=== PATIENT | female | born 1985 | race Caucasian/White ===

== ENCOUNTER → 2016-12-22 | Outpatient (CLI) | payer MEDICAID | LOC: RAD 16:35 | PROVIDERS: ATTEND Family Medicine | DX: Z34.92 Encounter for supervision of normal pregnancy, unspecified, second trimester (principal) | CPT/HCPCS: 76805 ==

== ENCOUNTER → 2017-10-17 | Outpatient (CLI) | payer OTHER ==
--- NOTE | 2017-10-17 11:18 | RADIOLOGY REPORT (SQ) ---
EXAM DESCRIPTION: MRI RT LOWER JOINT WITHOUT COMPLETED DATE/TIME: 10/17/2017 11:08 am REASON FOR STUDY: RIGHT KNEE PAIN M25.561 PAIN IN RIGHT KNEE COMPARISON: None. TECHNIQUE: Rightknee images acquired and stored on PACS. Multiplanar images include fat sensitive s equences as T1, water sensitive sequences as FST2 or STIR, cartilage sensitive sequences as FSPD, and gradient echo sequences. LIMITATIONS: None. FINDINGS: JOINT AND BURSAE: No effusion. BONE CORTEX AND MARROW: No alteration of signal to suggest marrow replacement. No worrisome bone lesi ons. No occult fracture. ACL: Intact. No degeneration or ganglion cyst. PCL: Intact. MCL: Intact. No periligamentous edema or fluid. LCL: Intact. No periligamentous edema or fluid. MEDIAL MENISCUS: No tears. No abnormal signal. LATERAL MENISCUS: No tears. No abnormal signal. MEDIAL COMPARTMENT: Cartilage preserved. No bone bruises or reactive marrow edema. No osteophytes. LATERAL COMPARTMENT: Cartilage preserved. No bone bruises or reactive marrow edema. No osteophytes. PATELLA: No chondromalacia. No subchondral cysts. Medial and lateral retinacula intact. EXTENSOR MECHANISM: Quadriceps and patellar tendons relatively intact. Mild edema in the suprapatell ar fat may represent impingement. SOFT TISSUES: Adjacent muscles and subcutaneous tissues normal. Normal flow void in popliteal artery and vein. OTHER: No other significant finding. IMPRESSION: 1. Potential mild suprapatellar fat pad impingement. 2. Otherwise, no internal derangem ent of the right knee appreciated. Cruciate and collateral ligaments are intact and there is no evid ence of meniscal tear or chondral lesion. TECHNICAL DOCUMENTATION: JOB ID: [id number] [employer]- All Rights Reserved
== END ==
LOC: RAD 10:14
PROVIDERS: ATTEND Physician Assistant
DX: M25.561 Pain in right knee (principal)

== ENCOUNTER 2019-09-21 19:31 | Emergency (ER) | payer MEDICAID, OTHER ==
--- NOTE | 2019-09-21 20:26 | EKG REPORT ---
SEVERITY:- BORDERLINE ECG - SINUS RHYTHM BORDERLINE T ABNORMALITIES, DIFFUSE LEADS : Confirmed by: Bogdan Morris MD 21-Sep-2019 20:25:17
--- NOTE | 2019-09-21 20:30 | ER Document Report ---
ED Medical Screen (RME) - General Chief Complaint: Skin Sore(s) Stated Complaint: LUMP ON STERNUM/CHEST PAIN/NAUSEA Time Seen by Provider: 09/21/19 20:23 Primary Care Provider: HOMERO HICKEY PA-C [Primary Care Provider] - Follow up as needed Notes: Patient is a 34-year-old female presents to the emergency department for pressure in the center of her chest. Patient voices she feels as though there is a "knot on my sternum." Patient's denying any trauma or falls. Patient also voices intermittent shortness of breath and nausea. Patient voices she was taking amphetamines for weight loss. States she stopped taking them approximately 5 days ago. GENERAL: Alert, interacts well. No acute distress. LUNGS: Clear to auscultation bilaterally, no wheezes, rales, or rhonchi. No respiratory distress. HEART: Regular rate and rhythm. No murmur I have greeted and performed a rapid initial assessment of this patient. A comprehensive ED assessment and evaluation of the patient, analysis of test results and completion of the medical decision making process will be conducted by additional ED providers. I have specifically instructed the patient or family members with the patient to immediately return to any nursing staff should anything change in the patient's condition or with their chief complaint. This medical record was dictated with voice recognizing software. There may be grammatical, syntax errors that are unintended. TRAVEL OUTSIDE OF THE [place] IN LAST 30 DAYS: No - Related Data Allergies/Adverse Reactions: No Known Allergies Allergy (Verified 09/21/19 20:20) Past Medical History - Social History Frequency of alcohol use: None Drug Abuse: None Endocrine Medical History: Denies: Hx Diabetes Mellitus Type 1, Hx Diabetes Mellitus Type 2 Skin Medical History: Reports Hx Eczema - Immunizations Hx Diphtheria, Pertussis, Tetanus Vaccination: No - unknown Doctor's Discharge - Discharge Referrals: HOMERO HICKEY PA-C [Primary Care Provider] - Follow up as needed
[2019-09-21 20:57] LABS: ABSOLUTE BASOPHILS # (AUTO) 0.1 10^3/uL (0.0-0.2); ABSOLUTE EOSINOPHILS # (AUTO) 0.2 10^3/uL (0.0-0.6); ABSOLUTE LYMPHOCYTES (AUTO) 3.3 10^3/uL (0.5-4.7); ABSOLUTE MONOCYTES (AUTO) 0.5 10^3/uL (0.1-1.4); ABSOLUTE NEUT (AUTO) 7.7 10^3/uL (1.7-8.2); BASOPHILS % (AUTO) 0.6 % (0-2); EOSINOPHILS % (AUTO) 1.4 % (0-6); HEMATOCRIT 42.4 % (36.0-47.0); LYMPHOCYTES % (AUTO) 28.4 % (13-45); MEAN CORPUSCULAR HEMOGLOBIN 28.7 pg (27.0-33.4); MEAN CORPUSCULAR VOLUME 87 fl (80-97); MONOCYTES % (AUTO) 4.4 % (3-13); PLATELET COUNT 289 10^3/uL (150-450); RED BLOOD COUNT 4.88 10^6/uL (3.72-5.28); RED CELL DISTRIBUTION WIDTH 13.2 % (11.5-14.0); SEGMENTED NEUTROPHILS % (AUTO) 65.2 % (42-78); TOTAL CELLS COUNTED % (AUTO) 100 %; WHITE BLOOD COUNT 11.8 10^3/uL (4.0-10.5)
[2019-09-21 21:15] LABS: ALBUMIN 4.9 g/dL (3.5-5.0); ALKALINE PHOSPHATASE 61 U/L (38-126); ANION GAP 14 (5-19); ASPARTATE AMINO TRANSFERASE 26 U/L (14-36); BILIRUBIN,DIRECT 0.1 mg/dL (0.0-0.4); BILIRUBIN,TOTAL 0.5 mg/dL (0.2-1.3); BLOOD UREA NITROGEN 14 mg/dL (7-20); CALCIUM 10.5 mg/dL (8.4-10.2); CARBON DIOXIDE 25 mmol/L (22-30); CHLORIDE 103 mmol/L (98-107); GLUCOSE 99 mg/dL (75-110); POTASSIUM 3.9 mmol/L (3.6-5.0); TOTAL PROTEIN 8.5 g/dL (6.3-8.2)
--- NOTE | 2019-09-21 21:17 | RADIOLOGY REPORT (SQ) ---
XR CHEST 2 VIEWS EXAM DATE: 09/21/2019 8:27 PM ASSURANCE ASSISTANT HISTORY: Pain. COMPARISON: None. FINDINGS: The heart size is within normal limits. No consolidation, pleural effusion, or pneumothorax is seen. No acute bony findings. IMPRESSION: No acute cardiopulmonary disease.
[2019-09-21 22:17] VITALS: BP 139/72
--- NOTE | 2019-09-21 23:03 | ER Document Report ---
ED General - General Chief Complaint: Skin Sore(s) Stated Complaint: LUMP ON STERNUM/CHEST PAIN/NAUSEA Time Seen by Provider: 09/21/19 20:23 Primary Care Provider: HOMERO HICKEY PA-C [Primary Care Provider] - Follow up as needed Notes: Patient complains of 24 hours of midsternal chest pain associated with coughing and she states it feels like a lump on her sternum. States that today she developed epigastric pain and nausea as well that worsens with pushing on her chest. It is associated with a productive cough, she does not have any change with deep breathing and denies any shortness of breath. She does admit nasal congestion and some rhinorrhea, denies any fevers or chills, denies any nausea, vomiting or diarrhea. TRAVEL OUTSIDE OF THE [place] IN LAST 30 DAYS: No - Related Data Allergies/Adverse Reactions: No Known Allergies Allergy (Verified 09/21/19 20:20) Past Medical History - General Information source: Patient - Social History Smoking Status: Never Smoker Frequency of alcohol use: None Drug Abuse: None Family History: Reviewed & Not Pertinent Patient has suicidal ideation: No Patient has homicidal ideation: No Endocrine Medical History: Denies: Hx Diabetes Mellitus Type 1, Hx Diabetes Mellitus Type 2 Skin Medical History: Reports Hx Eczema - Immunizations Hx Diphtheria, Pertussis, Tetanus Vaccination: No - unknown Review of Systems - Review of Systems Constitutional: No symptoms reported. denies: Fever EENT: See HPI Cardiovascular: See HPI Respiratory: See HPI Gastrointestinal: No symptoms reported -: Yes All other systems reviewed and negative Physical Exam - Vital signs Vitals: Temp Pulse Resp BP Pulse Ox 98.1 F 72 18 139/72 H 98 09/21/19 19:55 09/21/19 19:55 09/21/19 19:55 09/21/19 19:55 09/21/19 19:55 Interpretation: Hypertensive - Notes Notes: GENERAL: Alert, interacts well. No acute distress. HEAD: Normocephalic, atraumatic EYES: Pupils equal, round and reactive to light, extraocular movements intact. ENT: Oral mucosa moist, tongue midline. Clear rhinorrhea, slight postnasal drip, no sinus tenderness to percussion, tympanic membranes intact. NECK: Full range of motion, supple, trachea midline. LUNGS: Clear to auscultation bilaterally, no wheezes, rales or rhonchi, no respiratory distress. Sternum is tender to palpation the inferior third of the sternum, no specific tenderness over the xiphoid process or the sternomanubrial joint, no masses are noted, no skin lesions are noted. HEART: Regular rate and rhythm, no murmurs, gallops, rubs. ABDOMEN: Soft, nontender, nondistended, bowel sounds present in all 4 quadrants. EXTREMITIES: Moves all 4 extremities spontaneously, no edema, radial and dorsalis pedis pulses 2/4 bilaterally. No cyanosis. NEUROLOGICAL: Alert and oriented x3, normal speech, biceps and patellar DTRs 2+ bilaterally. PSYCH: Normal mood, normal affect. SKIN: Warm, Dry, normal turgor, no rashes or lesions noted. Course - Re-evaluation Re-evalutation: 09/21/19 23:00 CBC shows slight leukocytosis 11.8, otherwise unremarkable, CMP unremarkable, troponin negative, chest x-ray is unremarkable, EKG is nonischemic. This pain likely varus presents a costochondritis related to a viral upper respiratory tract infection with cough. Counseled patient on using anti-inflammatories, nasal steroids, saline rinses and [id number] decongestants. Patient agreeable with plan. Discharged home. - Vital Signs Vital signs: Temp Pulse Resp BP Pulse Ox 98.1 F 72 17 139/72 H 98 09/21/19 19:55 09/21/19 19:55 09/21/19 22:21 09/21/19 19:55 09/21/19 22:24 - Laboratory Result Diagrams: 09/21/19 20:45 09/21/19 20:45 Laboratory results interpreted by me: 09/21/19 09/21/19 20:45 20:45 WBC 11.8 H Calcium 10.5 H Total Protein 8.5 H - EKG Interpretation by Me Additional EKG results interpreted by me: 09/21/19 23:01 EKG shows sinus rhythm at a rate of 74, normal axis, normal intervals, no ST segment elevations or depressions, isolated T wave inversions in lead III per my interpretation. Discharge - Discharge Clinical Impression: Viral upper respiratory tract infection with cough, Costochondritis, acute Condition: Stable Disposition: HOME, SELF-CARE Additional Instructions: Costochondritis Your chest pain is coming from the rib cartilages in the chest wall. This is often caused by subtle straining of the ribs near the breastbone. The strain can occur from a mild injury, coughing or sneezing with a "cold," vigorous vomiting, or even from rib compression while sleeping. Often the pain doesn't begin until a couple of days after the strain. Persons with arthritis are especially prone to this type of pain, due to inflammation of the cartilage joints near the breast bone. But often, there is no clear reason why it happens. Rest from strenuous physical activity. This kind of chest pain is usually made worse by movement of the chest. Please take ibuprofen 800 mg every 8 hours for the next 3 to 5 days whether you think you need or not. Apply gentle warmth to the painful area for 15 minutes every hour or two. You should call contact the doctor immediately if things change. Further evaluation is needed if you develop a fever or cough, if the nature of the pain changes, or if you become short of breath. Upper Respiratory Illness You have a viral infection of the respiratory passages -- a "cold." This common infection causes nasal congestion, drainage, and often sore throat and cough. It is caused by a virus and is highly contagious. The disease usually lasts a week or more, though the worst symptoms are usually over in 3 or 4 days. There is no "cure" for the viral infection -- it must run its course. If there is a complication, such as bacterial infection in the nose, sinuses, middle ear, or bronchial tubes, antibiotics may be required, but antibiotics won't affect the virus. If you smoke, you should STOP!! Drink plenty of fluids. A humidifier may help. An expectorant medication or decongestant may make you more comfortable. Use acetaminophen or ibuprofen for fever or aches. See the doctor if fever persists over two or three days, if there is any significant worsening of your symptoms, or if you simply fail to improve as expected. Please use nasal saline rinses such as a NetiPot or NeilMed Sinus Rinses. Please use nasal steroid such as Nasonex 1 squirt per nostril twice a day to decrease inflammation and swelling. Please also use [id number] decongestants according to their directions on the box such as Sudafed during the day and Benadryl at night. Referrals: HOMERO HICKEY PA-C [Primary Care Provider] - Follow up as needed
== END 2019-09-21 23:15 | disposition home or self-care (01) ==
LOC: ER 19:31
DX: M94.0 Chondrocostal junction syndrome [Tietze] (principal); J06.9 Acute upper respiratory infection, unspecified; R11.0 Nausea; L98.9 Disorder of the skin and subcutaneous tissue, unspecified
CPT/HCPCS: 36415; 71046; 80053; 83690; 84484; 85025; 93005; 93010; 99284